=== PATIENT | female | born 1950 | race Caucasian/White ===

== ENCOUNTER → 2016-12-26 | Outpatient (CLI) | payer OTHER ==
[~2016-12-26] MED LIST: ASPI325T39 PO; ATOR10TA88 PO; CALCTAB5 PO; CHOL100010 PO; FURO-85 PO; HYDR-4380 PO; LOSA100T2 PO; MULT-506 PO; NAPR-1169 PO; POTA-335 PO
[2016-12-26 13:22] LABS: BLOOD UREA NITROGEN 21 mg/dl (7-18); BUN/CREATININE RATIO 24.2 (10-20); CALCIUM 9.6 mg/dl (8.5-10.1); CARBON DIOXIDE 28 mmol/L (21-32); CHLORIDE 104 mmol/L (98-107); CREATININE 0.88 mg/dl (0.60-1.20); GLUCOSE 102 mg/dl (70-99); SODIUM 139 mmol/L (136-145)
== END | disposition home or self-care (01) ==
LOC: C.LABPBG 08:22
PROVIDERS: ATTEND Internal Medicine Geriatric Medicine
DX: I10 Essential (primary) hypertension (principal); E78.5 Hyperlipidemia, unspecified

== ENCOUNTER → 2017-06-20 | Outpatient (CLI) | payer OTHER ==
[~2017-06-20] MED LIST changes: +ATOR10TA82 PO; -ATOR10TA88 PO
[2017-06-20 12:43] LABS: BASO % 0.7 %; BASO ABS # 0.05 K/uL (0-0.2); EOS % 5.2 %; EOS ABS # 0.36 K/uL (0-0.5); HEMATOCRIT 41.5 % (37-47); HEMOGLOBIN 13.8 g/dL (12.0-16.0); IG# 0.01 K/uL (0.00-0.02); LYMPH % 24.3 %; LYMPH ABS # 1.68 K/uL (1.2-3.4); MEAN CORPUSCULAR HEMOGLOBIN 30.6 pg (25-34); MEAN CORPUSCULAR HGB CONC 33.3 g/dl (32-36); MONO % 10.6 %; MONO ABS # 0.73 K/uL (0.11-0.59); NEUT % 59.1 %; NEUT ABS # 4.07 K/uL (1.4-6.5); PLATELET COUNT 424 K/uL (130-400); RED CELL DISTRIBUTION WIDTH CV 13.8 % (11.5-14.5); RED CELL DISTRIBUTION WIDTH SD 46.2 fL (36.4-46.3)
[2017-06-20 14:07] LABS: ALBUMIN 3.6 gm/dl (3.4-5.0); ALT/SGPT 20 U/L (12-78); AST/SGOT 16 U/L (15-37); BLOOD UREA NITROGEN 30 mg/dl (7-18); CALCIUM 8.9 mg/dl (8.5-10.1); CARBON DIOXIDE 28 mmol/L (21-32); CREATININE 0.88 mg/dl (0.60-1.20); GLUCOSE 97 mg/dl (70-99); POTASSIUM 3.7 mmol/L (3.5-5.1); SODIUM 136 mmol/L (136-145)
[2017-06-20 14:18] LABS: ALKALINE PHOSPHATASE 61 U/L (45-117); CHOLESTEROL 158 mg/dl (0-200); LDL CHOLESTEROL CALCULATED 90 mg/dl; TOTAL PROTEIN 7.6 gm/dl (6.4-8.2)
== END | disposition home or self-care (01) ==
LOC: C.LABPBG 08:44
PROVIDERS: ATTEND Internal Medicine Geriatric Medicine
DX: E55.9 Vitamin D deficiency, unspecified (principal); M19.90 Unspecified osteoarthritis, unspecified site; I10 Essential (primary) hypertension; E78.5 Hyperlipidemia, unspecified; Z68.39 Body mass index [BMI] 39.0-39.9, adult